=== PATIENT | female | born 1990 | race Caucasian/White ===

== ENCOUNTER 2023-11-25 20:22 | Emergency (ER) | payer OTHER ==
[~2023-11-25 20:22] MED LIST: Iopamidol 370 76% 100 ML VIAL ONE
[2023-11-25 20:59] LABS: #Basophils 0.1 thou/uL (0.0-0.2); #Lymphocytes 2.8 thou/uL (1.20-3.40); #Monocytes 0.6 thou/uL (0.11-0.59); #Neutrophils 3.5 thou/uL (1.40-6.50); %Basophils 1.1 % (0.0-1.0); %Eosinophils 0.6 % (0.0-10.0); %Lymphocytes 39.9 % (21.0-51.0); %Monocytes 8.6 % (0.0-10.0); %Neutrophils 49.8 % (42.0-75.0); Hematocrit 40.3 % (36.0-47.0); Hemoglobin 13.2 g/dL (12.0-16.0); Mean Corpuscular HGB CONC 32.7 g/dL (32.0-36.0); Mean Corpuscular Hemoglobin 30.8 pg (27.0-31.0); Mean Corpuscular Volume 93.9 fl (78.0-98.0); Mean Platelet Volume 7.8 fL (7.4-10.4); Platelet Count 290 10x3/uL (130-400); RBC Distribution Width 11.9 % (11.5-14.5); Red Blood Cell (RBC) Count 4.29 mill/uL (4.20-5.40)
[2023-11-25 21:10] LABS: BHCG - Serum Negative (NEGATIVE); Pregs Control Bar Appear? YES (CONTROL BAR)
[2023-11-25 21:16] LABS: ALT (SGPT) 18 U/L (8-55); AST (SGOT) 16 U/L (5-34); Acetaminophen Less than 10 mcg/mL (Less than 10); Albumin 4.5 g/dL (3.5-5.0); Alcohol Less than 10.0 mg/dL (Less than 10); Alkaline Phosphatase 61 U/L (40-110); Anion Gap 16 mmol/L (10-20); BUN (Urea Nitrogen) 12 mg/dL (7.0-18.7); Bilirubin, Total 0.6 mg/dL (0.2-1.2); Calc. Creatinine Clearance 0 mL/min (70-130); Calcium 9.6 mg/dL (7.8-10.44); Carbon Dioxide 21 mmol/L (22-29); Chloride 107 mmol/L (98-107); Estimated GFR 108; Globulin 3.2 g/dL (2.4-3.5); Glucose 79 mg/dL (70-105); Protein, Total 7.7 g/dL (6.0-8.3); Salicylate Less than 8.0 mg/dL (Less than 8.0); Sodium 140 mmol/L (136-145)
[2023-11-25] MEDS ORDERED: Dextrose 5 % And 0.9 % NaCl 1,000 ML ONE (21:48)
[2023-11-25] MEDS ORDERED: Boostrix 0.5 ML (Tdap) VIAL (>/=7 yrs of age) ONE (21:48)
[2023-11-25] MEDS ORDERED: Bacitracin 1 PK ONE (22:42)
[2023-11-25] MEDS ORDERED: Clopidogrel Bisulfate 75 MG TAB ONE (22:42)
[2023-11-25] MEDS ORDERED: Aspirin Chewable 81 MG TAB ONE (22:43)
[2023-11-25] MEDS ORDERED: Aspirin 325 MG TAB ONE (22:46)
== END 2023-11-25 23:43 | disposition short-term general hospital (02) ==
LOC: NAV ERS 20:22 → EEVIPCON 20:22 → NAV ERS 23:43
DX: S20.219A Contusion of unspecified front wall of thorax, initial encounter (principal); S10.91XA Abrasion of unspecified part of neck, initial encounter; R45.851 Suicidal ideations; X58.XXXA Exposure to other specified factors, initial encounter; Y93.89 Activity, other specified; Y92.149 Unspecified place in prison as the place of occurrence of the external cause; Z23 Encounter for immunization
CPT/HCPCS: 36415; 70492; 71045; 71120; 72125; 80053; 80307; 84703; 85025; 90471; 90715; 96374; J7042; Q9967